=== PATIENT | male | born 1955 | race African-American/Black ===

== ENCOUNTER 2019-03-14 07:31 | Emergency (ER) | payer OTHER ==
[~2019-03-14] VITALS: Ht 182.9 cm; Wt 104.0 kg
[2019-03-14] MEDS ORDERED: KETOROLAC 60MG/2ML VIAL IM ONE (08:00)
[2019-03-14] MEDS ORDERED: HYDROCODONE/ACETAMINOPHEN 5/325MG TABLET PO ONE (08:00)
[2019-03-14 09:53] VITALS: BP 170/77
== END 2019-03-14 09:58 | disposition home or self-care (01) ==
LOC: ER 07:44
DX: S52.502A Unspecified fracture of the lower end of left radius, initial encounter for closed fracture (principal); V49.40XA Driver injured in collision with unspecified motor vehicles in traffic accident, initial encounter; Y93.89 Activity, other specified; Y92.410 Unspecified street and highway as the place of occurrence of the external cause
CPT/HCPCS: 73090; 96372; 99283; J1885; A4565